=== PATIENT | female | born 1975 | race Caucasian/White ===

== ENCOUNTER 2021-07-25 13:05 | Emergency (ER) | payer SELFPAY ==
[~2021-07-25] VITALS: Ht 157.5 cm; Wt 90.7 kg
[2021-07-25 13:08] VITALS: BP 125/75
--- NOTE | 2021-07-25 13:56 | NUR ---
Patient ambulated to bed 9 with steady/even gait.
--- NOTE | 2021-07-25 14:05 | NUR ---
46 y/o F BIB self from home c/o RLQ abdominal pain x 5 days. Patient A&Ox4, ambulatory, reports pain 8/10, sharp/dull/intermittent, radiating to R flank. Patient reports performing heavy lifting at work recently and states that may have caused the pain. Pt states Ibuprofen last night without relief. Denies n/v/d, urinary symptoms, dysuria, constipation. Bowel sounds normoactive x 4 quadrants. Last BM: today, normal. Bed locked in lowest position, side rails x 1. PMH: DM2 MEDS: METFORMIN, GLIPIZIDE NKA
[2021-07-25 14:26] LABS: APPEARANCE,URINE CLEAR (CLEAR); BILIRUBIN,URINE NEGATIVE (NEGATIVE); BLOOD, URINE NEGATIVE (NEGATIVE); COLOR,URINE YELLOW (YELLOW); LEUKOCYTE ESTERASE ,URINE NEGATIVE (NEGATIVE); NITRITE, URINE NEGATIVE (NEGATIVE); PH,URINE 5.5 (5.0-9.0); UGLUCOSE 3+ (NEGATIVE)
[2021-07-25 14:28] LABS: BASOPHILS % (AUTO) 0.2 % (0.0-2.0); EOSINOPHILS # (AUTO) 0.4 K/uL (0-0.4); EOSINOPHILS % (AUTO) 6.2 % (0.0-4.0); HEMOGLOBIN 13.3 g/dL (12.0-16.0); LYMPHOCYTES # (AUTO) 1.3 K/uL (2.5-16.5); LYMPHOCYTES % (AUTO) 19.6 % (20.5-51.1); MEAN CORPUSCULAR HEMOGLOBIN 28 pg (27-31); MEAN CORPUSCULAR HGB CONC 33 g/dL (33-37); MEAN CORPUSCULAR VOLUME 83.3 fL (80-94); MONOCYTES # (AUTO) 0.3 K/uL (0.8-1.0); MONOCYTES % (AUTO) 3.8 % (1.7-9.3); NEUTROPHILS # (AUTO) 4.6 K/uL (1.8-7.7); NEUTROPHILS % (AUTO) 70.2 % (42.2-75.2); PLATELET COUNT (AUTO) 230 K/uL (140-450); RED CELL DISTRIBUTION WIDTH 14.5 % (11.6-13.7); WHITE BLOOD COUNT (AUTO) 6.5 K/uL (4.8-10.8)
[2021-07-25 14:44] LABS: ALBUMIN 3.5 g/dL (3.4-5.0); ANION GAP 13.7 (8-16); CARBON DIOXIDE 27.4 mmol/L (21-32); POTASSIUM 4.1 mmol/L (3.5-5.1); TOTAL BILIRUBIN 0.5 mg/dL (0.0-1.0)
[2021-07-25 15:20] VITALS: BP 135/77
[2021-07-25] MEDS ORDERED: NACL 0.9% 2,000 ML IV ONE (15:20)
[2021-07-25] MEDS ORDERED: INSULIN REGULAR, HUMAN 100 UNIT/ML VIAL SUBQ ONE (15:20)
[2021-07-25] MEDS ORDERED: MORPHINE SULFATE 4 MG/ML SYR IVP ONE (15:25)
--- NOTE | 2021-07-25 15:43 | NUR ---
Patient states + relief to pain after Morphine IVP. Pt rates /10; tolerance 8/. Pt placed onto label folder showing SpO2 98% on room air; RR 12. Denies nausea at this time.
--- NOTE | 2021-07-25 15:49 | NUR ---
Verbal consent received from patient to notify mom about update. Status update given to Mavis Gorman (mother) in [facility].
--- NOTE | 2021-07-25 16:22 | NUR ---
Patient states she feels a lot better at this time. Dr. Dickson made aware.
--- NOTE | 2021-07-25 16:50 | NUR ---
Patient discharged with v/s stable. Written and verbal after care instructions given and explained. Patient verbalized understanding. Ambulatory with steady gait. All questions addressed prior to discharge. Advised to follow up with PMD.
== END 2021-07-25 16:50 | disposition home or self-care (01) ==
LOC: MED 13:05
DX: S39.011A Strain of muscle, fascia and tendon of abdomen, initial encounter (principal); E11.65 Type 2 diabetes mellitus with hyperglycemia; X58.XXXA Exposure to other specified factors, initial encounter; Y92.89 Other specified places as the place of occurrence of the external cause; Y93.89 Activity, other specified; Y99.8 Other external cause status
CPT/HCPCS: 36415; 80053; 81003; 81025; 83690; 85025; 96361; 96372; 96374; 99284; J1815; J2270